=== PATIENT | female | born 1955 | race Caucasian/White ===

== ENCOUNTER 2018-03-11 05:50 | Day surgery (SDC) | payer OTHER ==
[~2018-03-11 05:50] MED LIST: GABAPENTIN800 MG PO; NORFLEX PO; TRAMADOL HCL50 MG PO
== END 2018-03-11 10:30 | disposition home or self-care (01) ==
LOC: CIR.AMB 05:50
DX: M43.06 Spondylolysis, lumbar region (principal)

== ENCOUNTER 2019-01-11 11:35 | Outpatient (CLI) | payer OTHER | END 2019-01-11 11:41 | disposition home or self-care (01) | LOC: MAMO-SONO 11:35 | DX: Z12.31 Encounter for screening mammogram for malignant neoplasm of breast (principal); Z87.898 Personal history of other specified conditions; N64.89 Other specified disorders of breast; M47.814 Spondylosis without myelopathy or radiculopathy, thoracic region; M51.37 Other intervertebral disc degeneration, lumbosacral region; M51.36 Other intervertebral disc degeneration, lumbar region; M43.06 Spondylolysis, lumbar region; M54.5 Low back pain; E03.8 Other specified hypothyroidism; E55.9 Vitamin D deficiency, unspecified; E66.8 Other obesity; F32.89 Other specified depressive episodes; I11.9 Hypertensive heart disease without heart failure ==

== ENCOUNTER → 2019-01-30 | Outpatient (CLI) | payer OTHER | END | disposition home or self-care (01) | LOC: NUCLEAR 09:14 | DX: I87.2 Venous insufficiency (chronic) (peripheral) (principal) ==

== ENCOUNTER 2019-02-13 08:45 | Outpatient (CLI) | payer OTHER | END 2019-02-13 16:18 | disposition home or self-care (01) | LOC: MRI 08:45 → SONOGRAMA 08:45 → MRI 10:15 | DX: M54.2 Cervicalgia (principal); Z12.31 Encounter for screening mammogram for malignant neoplasm of breast | CPT/HCPCS: 72141 ==

== ENCOUNTER 2019-09-22 09:46 | Outpatient (CLI) | payer OTHER | END 2019-09-22 09:54 | disposition home or self-care (01) | LOC: MAMO-SONO 09:46 | DX: N60.11 Diffuse cystic mastopathy of right breast (principal); N60.12 Diffuse cystic mastopathy of left breast; I11.9 Hypertensive heart disease without heart failure; M43.06 Spondylolysis, lumbar region; D68.8 Other specified coagulation defects; E03.8 Other specified hypothyroidism; E66.8 Other obesity; F32.89 Other specified depressive episodes; M47.814 Spondylosis without myelopathy or radiculopathy, thoracic region; M35.1 Other overlap syndromes; R76.0 Raised antibody titer; M15.8 Other polyosteoarthritis; I87.2 Venous insufficiency (chronic) (peripheral); Z12.31 Encounter for screening mammogram for malignant neoplasm of breast ==

== ENCOUNTER 2019-10-06 11:16 | Outpatient (CLI) | payer OTHER | END 2019-10-06 11:19 | disposition home or self-care (01) | LOC: NUCLEAR 11:16 | DX: M81.0 Age-related osteoporosis without current pathological fracture (principal) ==

== ENCOUNTER 2020-04-03 08:24 | Outpatient (CLI) | payer OTHER ==
[2020-05-06] MEDS ORDERED: TYLENOL CODEINE PO (13:10)
== END 2020-04-03 08:26 | disposition home or self-care (01) ==
LOC: MRI 08:24
PROVIDERS: ATTEND Internal Medicine Rheumatology
DX: M75.82 Other shoulder lesions, left shoulder (principal)
CPT/HCPCS: 73218; 73221

== ENCOUNTER → 2020-05-08 11:04 | Outpatient (CLI) | payer OTHER ==
[~2020-05-08 11:04] MED LIST changes: +TYLENOL CODEINE PO
== END | disposition home or self-care (01) ==
LOC: LAB 11:04
PROVIDERS: ATTEND Internal Medicine
DX: I11.9 Hypertensive heart disease without heart failure (principal); M43.06 Spondylolysis, lumbar region; D68.8 Other specified coagulation defects; E03.8 Other specified hypothyroidism; E66.8 Other obesity; F32.89 Other specified depressive episodes; M47.814 Spondylosis without myelopathy or radiculopathy, thoracic region; M35.1 Other overlap syndromes; R76.0 Raised antibody titer; M15.8 Other polyosteoarthritis; I87.2 Venous insufficiency (chronic) (peripheral); E55.9 Vitamin D deficiency, unspecified; E55.0 Rickets, active; Z12.31 Encounter for screening mammogram for malignant neoplasm of breast; Z12.11 Encounter for screening for malignant neoplasm of colon; Z01.818 Encounter for other preprocedural examination

== ENCOUNTER 2020-05-09 05:30 | Day surgery (SDC) | payer OTHER | END 2020-05-09 11:15 | disposition home or self-care (01) | LOC: CIR.AMB 05:30 → ADM 10:45 → CIR.AMB 10:45 | PROVIDERS: ATTEND Orthopaedic Surgery | DX: M75.122 Complete rotator cuff tear or rupture of left shoulder, not specified as traumatic (principal); M75.22 Bicipital tendinitis, left shoulder; M19.012 Primary osteoarthritis, left shoulder; M75.42 Impingement syndrome of left shoulder ==

== ENCOUNTER 2020-07-25 07:20 | Outpatient (CLI) | payer OTHER ==
[2020-07-26] MEDS ORDERED: OMEPRAZOLE40 MG PO (20:13)
[2020-07-26] MEDS ORDERED: CEFDINIR300 MG PO (20:13)
[2020-07-26] MEDS ORDERED: FLAGYL500MG PO (20:13)
[2020-07-26] MEDS ORDERED: LEVSIN/SL0.125 MG SL (20:13)
== END 2020-07-25 07:31 | disposition home or self-care (01) ==
LOC: MRI 07:20
PROVIDERS: ATTEND Internal Medicine Rheumatology
DX: R51 Headache (principal); M35.1 Other overlap syndromes
CPT/HCPCS: 70553; A9575

== ENCOUNTER 2020-07-26 16:20 | Emergency (ER) | payer OTHER ==
[~2020-07-26] VITALS: Ht 167.6 cm; Wt 95.3 kg
[2020-07-26] MEDS ORDERED: CEFDINIR300 MG PO (20:13)
[2020-07-26] MEDS ORDERED: LEVSIN/SL0.125 MG SL (20:13)
[2020-07-26] MEDS ORDERED: FLAGYL500MG PO (20:13)
[2020-07-26] MEDS ORDERED: OMEPRAZOLE40 MG PO (20:13)
== END 2020-07-26 20:25 | disposition home or self-care (01) ==
LOC: ER 16:20
DX: K57.92 Diverticulitis of intestine, part unspecified, without perforation or abscess without bleeding (principal); R10.32 Left lower quadrant pain

== ENCOUNTER 2021-02-14 09:15 | Outpatient (CLI) | payer OTHER ==
[~2021-02-14 09:15] MED LIST changes: +CEFDINIR300 MG PO; +FLAGYL500MG PO; +LEVSIN/SL0.125 MG SL; +OMEPRAZOLE40 MG PO
== END 2021-02-14 09:24 | disposition home or self-care (01) ==
LOC: MAMO-SONO 09:15
PROVIDERS: ATTEND Internal Medicine
DX: Z12.31 Encounter for screening mammogram for malignant neoplasm of breast (principal); N64.59 Other signs and symptoms in breast; R76.0 Raised antibody titer; I87.2 Venous insufficiency (chronic) (peripheral); M15.8 Other polyosteoarthritis; M35.1 Other overlap syndromes; Z12.11 Encounter for screening for malignant neoplasm of colon; I11.9 Hypertensive heart disease without heart failure; M75.111 Incomplete rotator cuff tear or rupture of right shoulder, not specified as traumatic; E55.0 Rickets, active; D68.8 Other specified coagulation defects; E03.8 Other specified hypothyroidism; K57.00 Diverticulitis of small intestine with perforation and abscess without bleeding; R51.0 Headache with orthostatic component, not elsewhere classified

== ENCOUNTER 2021-02-19 08:23 | Outpatient (CLI) | payer OTHER | END 2021-02-19 08:36 | disposition home or self-care (01) | LOC: MRI 08:23 | PROVIDERS: ATTEND Anesthesiology | DX: M51.36 Other intervertebral disc degeneration, lumbar region (principal) | CPT/HCPCS: 72148 ==

== ENCOUNTER 2021-05-20 07:20 | Outpatient (CLI) | payer OTHER | END 2021-05-20 07:37 | disposition home or self-care (01) | LOC: RAD 07:20 | PROVIDERS: ATTEND Orthopaedic Surgery | DX: M71.22 Synovial cyst of popliteal space [Baker], left knee (principal); M25.562 Pain in left knee; M25.561 Pain in right knee | CPT/HCPCS: 73721 ==

== ENCOUNTER 2022-04-27 08:45 | Outpatient (CLI) | payer OTHER | END 2022-04-27 09:03 | disposition home or self-care (01) | LOC: MRI 08:45 | PROVIDERS: ATTEND Anesthesiology | DX: M54.12 Radiculopathy, cervical region (principal) | CPT/HCPCS: 72141 ==

== ENCOUNTER 2022-10-06 08:00 | Inpatient (IN) | payer OTHER ==
[~2022-10-06] VITALS: Ht 167.6 cm; Wt 95.3 kg
[2022-10-06] MEDS ORDERED: ZANAFLEX2 M1 PO (10:07)
[2022-10-06] MEDS ORDERED: CATAFLAN PO (10:08)
[2022-10-12] MEDS ORDERED: PREGABALIN100 MG (09:37)
[2022-10-12] MEDS ORDERED: SERTRALINE HCL50 MG (09:37)
[2022-10-12] MEDS ORDERED: ACETAMINOPHN-CO10 ML (09:43)
[2022-10-12] MEDS ORDERED: DICLOFENAC POTA50 MG (09:45)
[2022-10-14] MEDS ORDERED: INTEGRA PLUS C1 EACH PO (07:35)
[2022-10-14] MEDS ORDERED: OXYC1TAB9 PO (07:35)
[2022-10-14] MEDS ORDERED: XARELTO10 MG PO (07:35)
[2022-10-14] MEDS ORDERED: BACTRIM DS TAB1 EACH PO (07:35)
== END 2022-10-14 14:55 | DRG 470 ==
LOC: SURH 10-12 04:50 → O/R 10-12 04:50 → SURH 10-12 07:00
PROVIDERS: ADMIT Orthopaedic Surgery Sports Medicine; ATTEND Orthopaedic Surgery Sports Medicine
PROC: 0SRD0J9 Replacement of Left Knee Joint with Synthetic Substitute, Cemented, Open Approach (ICD-10-PCS; principal; 2022-10-12 07:00)
DX: M17.12 Unilateral primary osteoarthritis, left knee (principal); Z20.822 Contact with and (suspected) exposure to COVID-19

== ENCOUNTER 2024-04-18 10:45 | Inpatient (IN) | payer OTHER ==
[~2024-04-18] VITALS: Ht 152.4 cm; Wt 77.1 kg
[~2024-04-18 10:45] MED LIST changes: +ACETAMINOPHN-CO10 ML; +BACTRIM DS TAB1 EACH PO; +CATAFLAN PO; +DICLOFENAC POTA50 MG; +INTEGRA PLUS C1 EACH PO; +OXYC1TAB9 PO; +PREGABALIN100 MG; +SERTRALINE HCL50 MG; +XARELTO10 MG PO; +ZANAFLEX2 M1 PO
[2024-04-18] MEDS ORDERED: LYRICA50 MG PO (12:16)
[2024-04-25] MEDS ORDERED: BUPIVACAINE HCL 30 ML VIAL IJ ONE (08:30)
[2024-04-25] MEDS ORDERED: POLYMYXIN B SULFATE 500,000 U VIAL IR ONE (08:30)
[2024-04-25] MEDS ORDERED: METHYLPREDNISOLONE ACETATE 80 MG/ML VIAL IJ ONE (08:30)
[2024-04-25] MEDS ORDERED: LIDOCAINE HCL 1%/EPINEPHRINE 20ML VIAL IJ ONE (08:30)
[2024-04-25] MEDS ORDERED: TRANEXAMIC ACID 100MG/1ML (1000MG) AMPUL IV ONE ×2 (08:30)
[2024-04-25] MEDS ORDERED: VANCOMYCIN HCL 1,000 MG VIAL IV ONE (08:30)
[2024-04-25] MEDS ORDERED: POVIDONE-IODINE 0.75 OZ PACKET TOP ONE (08:30)
[2024-04-25] MEDS ORDERED: VANCOMYCIN HCL 1,000 MG VIAL IV SCH ×2 (09:50→21:00)
[2024-04-25] MEDS ORDERED: ONDANSETRON HCL 2 MG/ML VIAL IV PRN (10:00)
[2024-04-25] MEDS ORDERED: SODIUM CHLORIDE 0.45 % 1,000 ML IV SCH (10:00)
[2024-04-25] MEDS ORDERED: MORPHINE SULFATE 2 MG/ML CARTRIDGE IV ONE (10:00)
[2024-04-25] MEDS ORDERED: MORPHINE SULFATE 4 MG/ML CARTRIDGE IV PRN (10:00)
[2024-04-25 11:18] LABS: HEMATOCRIT 39.1 % (36.0-45.00); HEMOGLOBIN 12.7 g/dL (12.0-15.00); RED BLOOD COUNT 4.78 M/uL (4.00-6.00)
[2024-04-25 21:24] LABS: ALBUMIN 3.2 gm/dL (3.4-5.0); BILIRUBIN TOTAL 0.96 mg/dL (0.3-1.2); CALCIUM 8.2 mg/dL (8.5-10.1); CREATININE SERUM 0.48 mg/dL (0.55-1.02); GFR 129.4; GLOBULINA 2.7 G/DL (2.4-3.5); POTASSIUM 3.5 mEq/L (3.5-5.1); TOTAL PROTEIN 5.9 gm/dL (6.4-8.2)
[2024-04-26 01:34] LABS: HEMOGLOBIN 12.4 g/dL (12.0-15.00); MEAN CELL VOLUME 81.3 fL (80.00-100.00); MEAN CORPUSCULAR HEMOGLOBIN 26.5 pg (27.00-32.0); MEAN CORPUSCULAR HGB CONC 32.6 g/dl (32.0-36.0); PLATELET COUNT 195 K/uL (150-450); RED BLOOD COUNT 4.68 M/uL (4.00-6.00); RED CELL DISTRIBUTION WIDTH 14.7 % (11.5-14.5)
[2024-04-26] MEDS ORDERED: OxyCODONE HCL/APAP UD (PERCOCET) PO PRN (08:15)
[2024-04-26] MEDS ORDERED: IRON FUM,PS/FOLIC/BCOMP,C NO.9 1 CAP CAPSULE PO SCH (09:00)
[2024-04-26] MEDS ORDERED: BACITRACIN 28.35 GM OINT.TUBE TOP SCH (09:00)
[2024-04-26] MEDS ORDERED: SENNA/DOCUSATE SODIUM 1 TAB TABLET PO SCH (09:00)
[2024-04-26] MEDS ORDERED: OxyCODONE HCL ER 10MG TAB (OxyCONTIN) PO SCH (09:00)
[2024-04-26] MEDS ORDERED: RIVAROXABAN 10 MG TAB PO SCH (09:00)
[2024-04-27 02:36] LABS: HEMATOCRIT 37.4 % (36.0-45.00); HEMOGLOBIN 12.2 g/dL (12.0-15.00); MEAN CELL VOLUME 80.7 fL (80.00-100.00); MEAN CORPUSCULAR HEMOGLOBIN 26.4 pg (27.00-32.0); MEAN CORPUSCULAR HGB CONC 32.7 g/dl (32.0-36.0); PLATELET COUNT 169 K/uL (150-450); RED BLOOD COUNT 4.63 M/uL (4.00-6.00); RED CELL DISTRIBUTION WIDTH 14.7 % (11.5-14.5)
[2024-04-27] MEDS ORDERED: XARELTO10 MG PO (08:03)
[2024-04-27] MEDS ORDERED: OXYC1TAB9 PO (08:03)
[2024-04-27] MEDS ORDERED: INTEGRA PLUS C1 EACH PO (08:03)
== END 2024-04-27 21:25 | disposition home or self-care (01) | DRG 470 ==
LOC: SURH 04-24 10:45 → O/R 04-25 05:00 → OB/GYN 04-25 12:12
PROVIDERS: ADMIT Orthopaedic Surgery Sports Medicine; ATTEND Orthopaedic Surgery Sports Medicine
PROC: 0SRC0JZ Replacement of Right Knee Joint with Synthetic Substitute, Open Approach (ICD-10-PCS; principal; 2024-04-25 07:00)
DX: M17.11 Unilateral primary osteoarthritis, right knee (principal)

== ENCOUNTER 2024-08-21 09:45 | Outpatient (CLI) | payer OTHER ==
[~2024-08-21 09:45] MED LIST changes: +LYRICA50 MG PO
[2024-08-21 11:02] LABS: HEMATOCRIT 39.7 % (36.0-45.00); HEMOGLOBIN 13.2 g/dL (12.0-15.00); MEAN CELL VOLUME 79.7 fL (80.00-100.00); MEAN CORPUSCULAR HEMOGLOBIN 26.5 pg (27.00-32.0); MEAN CORPUSCULAR HGB CONC 33.2 g/dl (32.0-36.0); PLATELET COUNT 208 K/uL (150-450); RED BLOOD COUNT 4.98 M/uL (4.00-6.00); RED CELL DISTRIBUTION WIDTH 15.2 % (11.5-14.5)
[2024-08-21 11:21] LABS: URINE APPEARANCE Clear; URINE BILIRRUBIN Negative (NEGATIVE); URINE BLOOD Negative; URINE COLOR Yellow; URINE GLUCOSE Negative (NEGATIVE); URINE KETONE Negative (NEGATIVE); URINE LEUKOCYTE Negative; URINE NITRATE Negative; URINE PROTEIN Negative (NEGATIVE); URINE UROBILINOGEN 0.2 E.U./dl
[2024-08-21 11:24] LABS: INR 1.01; PARTIAL THROMBOPLASTIN TIME 27.5 SECONDS (22.0-34.0)
[2024-08-21 11:41] LABS: COL EPI 149 SECONDS (82-175)
[2024-08-21 11:54] LABS: ALBUMIN 3.7 gm/dL (3.4-5.0); BILIRUBIN TOTAL 0.93 mg/dL (0.3-1.2); CREATININE SERUM 0.42 mg/dL (0.55-1.02); GFR 150.49; GLOBULINA 2.9 G/DL (2.4-3.5); POTASSIUM 3.62 mEq/L (3.5-5.1); TOTAL PROTEIN 6.6 gm/dL (6.4-8.2)
[2024-08-21 12:02] LABS: URINE BACTERIA 8.8 uL (0.0-1933); URINE CAST 0.15 uL (0.0-1.40); URINE EPITHELIAL CELLS 1.6 uL (0.0-38.8); URINE RBC 5.4 uL (0.0-20.8)
== END 2024-08-21 10:13 | disposition home or self-care (01) ==
LOC: LAB 09:45
PROVIDERS: ATTEND Orthopaedic Surgery
DX: D64.9 Anemia, unspecified (principal); E88.89 Other specified metabolic disorders; D68.8 Other specified coagulation defects; N39.0 Urinary tract infection, site not specified; Z22.322 Carrier or suspected carrier of Methicillin resistant Staphylococcus aureus; E11.9 Type 2 diabetes mellitus without complications; I10 Essential (primary) hypertension; Z76.89 Persons encountering health services in other specified circumstances

== ENCOUNTER 2024-08-29 08:35 | Outpatient (CLI) | payer OTHER ==
[2024-08-29 09:19] LABS: URINE APPEARANCE Clear; URINE BILIRRUBIN Negative (NEGATIVE); URINE BLOOD Negative; URINE COLOR Yellow; URINE GLUCOSE Negative (NEGATIVE); URINE KETONE Negative (NEGATIVE); URINE LEUKOCYTE Negative; URINE NITRATE Negative; URINE PROTEIN Negative (NEGATIVE); URINE UROBILINOGEN 0.2 E.U./dl
[2024-08-29 09:22] LABS: URINE EPITHELIAL CELLS 5.5 uL (0.0-38.8); URINE RBC 4.7 uL (0.0-20.8); URINE WBC 3.8 uL (0.0-23.2)
[2024-08-29 09:37] LABS: URINE CAST 0.15 uL (0.0-1.40)
== END 2024-08-29 08:36 | disposition home or self-care (01) ==
LOC: LAB 08:35
PROVIDERS: ATTEND Orthopaedic Surgery
DX: N39.0 Urinary tract infection, site not specified (principal)

== ENCOUNTER 2024-09-05 05:00 | Day surgery (SDC) | payer OTHER ==
[2024-09-05] MEDS ORDERED: VANCOMYCIN HCL 1,000 MG VIAL IV ONE (08:45)
[2024-09-05] MEDS ORDERED: ISOPROPYL ALCOHOL 30 ML OUNCE TOP ONE (08:45)
[2024-09-05] MEDS ORDERED: ENALAPRILAT DIHYDRATE 1.25 MG/ML VIAL IV ONE (10:00)
[2024-09-05] MEDS ORDERED: MORPHINE SULFATE 4 MG/ML VIAL IV ONE ×2 (11:30→12:00)
== END 2024-09-05 13:01 | disposition home or self-care (01) ==
LOC: CIR.AMB 05:00
PROVIDERS: ATTEND Orthopaedic Surgery
DX: G57.01 Lesion of sciatic nerve, right lower limb (principal); G57.81 Other specified mononeuropathies of right lower limb; M70.61 Trochanteric bursitis, right hip